=== PATIENT | female | born 1955 | race Caucasian/White ===

== ENCOUNTER → 2017-02-07 | Outpatient (CLI) | payer OTHER ==
[~2017-02-07] MED LIST: ACID1CAP PO; ALBU18HF INH; AMLO5TAB2 PO; BUDE10.22 INH; CALC1CAP8 PO; CETI10CA PO; CHOL5000 PO; FERR325T35 PO; HYDR-3138 PO; LEVO75CA2 PO; LEVO88TA4 PO; LISI40TA PO; LORA10CA PO; MAGN400T36 PO; METO25TA91 PO; MULT-658 PO; TRAZ50TA18 PO; VENL75TA PO; VITA1CAP PO; VITA400C43 PO; folic acid PO; magnesium PO; strontium citrate PO
[2017-02-07 09:51] LABS: HEMATOCRIT 42.8 % (34.6-47.8); HEMOGLOBIN 14.3 g/dL (11.7-16.4); WHITE BLOOD COUNT 9.2 x10^3/uL (3.4-10)
[2017-02-07 09:51] LABS: PATH.CAST-FLAG NOT PRESENT; SPERM-FLAG NOT PRESENT; SRC-FLAG NOT PRESENT; XTAL-FLAG NOT PRESENT; YLC-FLAG NOT PRESENT
[2017-02-07 10:00] LABS: ASPARTATE AMINO TRANSFERASE 9 U/L (15-37); BLOOD UREA NITROGEN 14 mg/dL (7-18)
== END | disposition home or self-care (01) ==
LOC: STAR 08:20
PROVIDERS: ATTEND Orthopaedic Surgery
DX: Z01.818 Encounter for other preprocedural examination (principal); M17.11 Unilateral primary osteoarthritis, right knee; R94.31 Abnormal electrocardiogram [ECG] [EKG]
CPT/HCPCS: 36415; 80053; 81001; 85025; 87081; 87086; 93005

== ENCOUNTER 2017-02-13 08:07 | Inpatient (IN) | payer OTHER ==
[2017-02-07 08:51] VITALS: BP 145/84
[~2017-02-13] VITALS: Ht 157.5 cm; Wt 150.0 kg
[~2017-02-13 08:07] MED LIST changes: +FENTANYL PF 100 MCG/2ML ONE; +FERR-46 PO; -FERR325T35 PO; -HYDR-3138 PO; +HYDR-3237 PO; +HYDROmorphone 1 MG/ML, 1ML ONE; +MIDAZOLAM 1 MG/ML, 2ML ONE; +TRANEXAMIC ACID 100 MG/ML, 10ML ONE
[2017-02-13] MEDS ORDERED: LACTATED RINGERS 1,000 ML IV SCH (09:08)
[2017-02-13] MEDS ORDERED: LIDOCAINE 1%, 2ML SQ PRN (09:30)
[2017-02-13] MEDS ORDERED: PROPOFOL 10 MG/ML, 20ML ONE (10:47)
[2017-02-13] MEDS ORDERED: SUCCINYLCHOLINE 20 MG/ML, 10ML ONE (10:47)
[2017-02-13] MEDS ORDERED: CEFAZOLIN 1,000 MG ONE (10:47)
[2017-02-13] MEDS ORDERED: ROCURONIUM 10 MG/ML ONE (10:47)
[2017-02-13] MEDS ORDERED: TRANEXAMIC ACID 100 MG/ML, 10ML ONE (10:55)
[2017-02-13] MEDS ORDERED: PNEUMOCOCCAL 23 VACCINE IM-VACC ONE (11:00)
[2017-02-13] MEDS ORDERED: FENTANYL PF 100 MCG/2ML ONE ×3 (11:12→13:57)
[2017-02-13] MEDS ORDERED: hydrALAzine 20 MG/ML, 1ML IV PRN (13:00)
[2017-02-13] MEDS ORDERED: SCOPOLAMINE PATCH, 1.5MG PATCH.TD72 TD SCH (13:00)
[2017-02-13] MEDS ORDERED: BISACODYL 10 MG SUPP PR PRN (13:00)
[2017-02-13] MEDS ORDERED: ZOLPIDEM 5MG TABLET PO PRN (13:00)
[2017-02-13] MEDS ORDERED: ONDANSETRON 2MG/ML, 2ML IV PRN (13:00)
[2017-02-13] MEDS ORDERED: METOCLOPRAMIDE 5 MG/ML, 2ML IV PRN (13:00)
[2017-02-13] MEDS ORDERED: PROMETHAZINE 12.5 MG SUPP PR PRN (13:00)
[2017-02-13] MEDS ORDERED: PROMETHAZINE 25 MG/ML, 1ML IM PRN (13:00)
[2017-02-13] MEDS: ACETAMINOPHEN 650 MG/20.3 ML UDC PO SCH ×3 (13:00→23:59)
[2017-02-13] MEDS ORDERED: FENTANYL PF 100 MCG/2ML IV PRN (13:00)
[2017-02-13] MEDS ORDERED: ONDANSETRON 2MG/ML, 2ML IVPush PRN (13:00)
[2017-02-13] MEDS ORDERED: HYDROmorphone 1 MG/ML, 1ML IV PRN (13:00)
[2017-02-13] MEDS ORDERED: HYDROcodone/APAP 10/325 MG TABLET PO PRN (13:00)
[2017-02-13] MEDS ORDERED: MAGNESIUM HYDROXIDE 8%, 30ML UDC PO PRN (13:00)
[2017-02-13] MEDS ORDERED: ALUMINUM/MAG/SIMETHICONE 30 ML UDC PO PRN (13:00)
[2017-02-13] MEDS ORDERED: ONDANSETRON 4 MG TABLET PO PRN (13:00)
[2017-02-13] MEDS ORDERED: OXYcodone 5 MG/5 ML ORAL.SOL UDC PO PRN (13:00)
[2017-02-13] MEDS ORDERED: DIPHENHYDRAMINE 50 MG CAPSULE PO PRN (13:00)
[2017-02-13] MEDS: OXYcodone IR 5MG TABLET PO SCH ×3 (13:00→23:59)
[2017-02-13] MEDS ORDERED: OXYcodone IR 5MG TABLET PO PRN (13:00)
[2017-02-13] MEDS ORDERED: ACETAMINOPHEN 325 MG TABLET PO PRN (13:00)
[2017-02-13] MEDS ORDERED: SENNA/DOCUSATE TABLET PO PRN (13:00)
[2017-02-13] MEDS ORDERED: LABETALOL 5MG/ML, 20ML IV PRN (13:00)
[2017-02-13] MEDS ORDERED: HYDROmorphone 1 MG/ML, 1ML ONE (13:06)
[2017-02-13] MEDS ORDERED: OXYcodone 5 MG/5 ML ORAL.SOL UDC ONE (13:06)
[2017-02-13] MEDS ORDERED: ACETAMINOPHEN 650 MG/20.3 ML UDC ONE (13:06)
[2017-02-13] MEDS: HYDROmorphone 1 MG/ML, 1ML IV PRN ×2 (13:15→13:25)
[2017-02-13] MEDS ORDERED: TRANEXAMIC ACID 2,000 MG in SODIUM CHLORIDE 0.9% 100 ML IVPB ONE (13:15)
[2017-02-13] MEDS: TAMSULOSIN 0.4 MG CAP.ER.24H PO SCH (14:18)
[2017-02-13] MEDS: SODIUM CHLORIDE 0.9% 1,000 ML IV SCH ×2 (14:34→22:41)
[2017-02-13] MEDS ORDERED: KETOROLAC 60 MG/2 ML ONE (14:56)
[2017-02-13] MEDS ORDERED: SODIUM CHLORIDE 0.9% 50 ML ONE (14:56)
[2017-02-13] MEDS ORDERED: EPINEPHRINE 1 MG/ML, 1ML ONE (14:56)
[2017-02-13] MEDS ORDERED: ROPIvacaine/PF 0.2%, 20 ML ONE (14:56)
[2017-02-13] MEDS: ASPIRIN 81 MG TABLET EC PO SCH (17:21)
[2017-02-13] MEDS: CEFAZOLIN PMX 2GM/50ML 50 ML IVPB SCH (18:26)
[2017-02-13 18:50] VITALS: BP 145/78
[2017-02-13] MEDS: DOCUSATE 100 MG CAPSULE PO SCH (20:27)
[2017-02-13] MEDS: PREGABALIN 75 MG CAPSULE PO SCH (20:27)
[2017-02-13] MEDS: TRAZODONE 50MG TABLET PO SCH (20:27)
[2017-02-13] MEDS: METOPROLOL SUCCINATE 25 MG TAB.ER.24H PO SCH (20:27)
[2017-02-13] MEDS: DIAZEPAM 5 MG TABLET PO PRN (21:50)
[2017-02-14 00:02] VITALS: BP 142/64
[2017-02-14] MEDS: CEFAZOLIN PMX 2GM/50ML 50 ML IVPB SCH (02:21)
[2017-02-14] MEDS ORDERED: ACETAMINOPHEN 325 MG TABLET ONE (03:36)
[2017-02-14] MEDS: OXYcodone IR 5MG TABLET PO SCH ×5 (04:05→20:55)
[2017-02-14] MEDS: ACETAMINOPHEN 650 MG/20.3 ML UDC PO SCH (04:06)
[2017-02-14 04:18] VITALS: BP 134/59
[2017-02-14] MEDS: LEVOTHYROXINE 88 MCG TABLET PO SCH (05:47)
[2017-02-14] MEDS: ASPIRIN 81 MG TABLET EC PO SCH ×2 (05:47→16:58)
[2017-02-14 05:52] LABS: HEMATOCRIT 35.6 % (34.6-47.8); HEMOGLOBIN 11.8 g/dL (11.7-16.4)
[2017-02-14] MEDS ORDERED: DEXAMETHASONE 4 MG/ML, 1ML IVPush SCH (06:00)
[2017-02-14 07:52] VITALS: BP 162/70
[2017-02-14] MEDS: SODIUM CHLORIDE 0.9% 1,000 ML IV SCH (08:14)
[2017-02-14] MEDS: ACETAMINOPHEN 325 MG TABLET PO SCH ×4 (08:20→20:55)
[2017-02-14] MEDS: TAMSULOSIN 0.4 MG CAP.ER.24H PO SCH (08:21)
[2017-02-14] MEDS: LISINOPRIL 20 MG TABLET PO SCH (08:22)
[2017-02-14] MEDS: MULTIVITAMINS/MINERALS TABLET PO SCH (08:22)
[2017-02-14] MEDS: AMLODIPINE 5 MG TABLET PO SCH (08:22)
[2017-02-14] MEDS: VENLAFAXINE 75MG TABLET PO SCH (08:22)
[2017-02-14] MEDS: PREGABALIN 75 MG CAPSULE PO SCH ×2 (08:22→20:56)
[2017-02-14] MEDS: DOCUSATE 100 MG CAPSULE PO SCH ×2 (08:23→20:56)
[2017-02-14] MEDS ORDERED: LEVOTHYROXINE SODIUM 75 MCG PO SCH (09:00)
[2017-02-14] MEDS: FLUTICASONE/VILANTEROL 100-25MCG/INH INH SCH (11:46)
[2017-02-14 13:57] VITALS: BP 137/79
[2017-02-14] MEDS: KETOROLAC 30 MG/1 ML IV SCH ×2 (15:01→22:56)
[2017-02-14 19:11] VITALS: BP 149/70
[2017-02-14] MEDS: TRAZODONE 50MG TABLET PO SCH (20:56)
[2017-02-14] MEDS: METOPROLOL SUCCINATE 25 MG TAB.ER.24H PO SCH (20:56)
[2017-02-14] MEDS: DIAZEPAM 5 MG TABLET PO PRN (22:56)
[2017-02-15] MEDS: OXYcodone IR 5MG TABLET PO SCH ×4 (00:30→13:28)
[2017-02-15] MEDS: ACETAMINOPHEN 325 MG TABLET PO SCH ×4 (00:30→13:29)
[2017-02-15] MEDS: ASPIRIN 81 MG TABLET EC PO SCH (04:40)
[2017-02-15] MEDS: LEVOTHYROXINE 88 MCG TABLET PO SCH (04:40)
[2017-02-15] MEDS: KETOROLAC 30 MG/1 ML IV SCH (07:00)
[2017-02-15 08:26] VITALS: BP 135/60
[2017-02-15] MEDS: FLUTICASONE/VILANTEROL 100-25MCG/INH INH SCH (09:26)
[2017-02-15] MEDS: DOCUSATE 100 MG CAPSULE PO SCH (09:28)
[2017-02-15] MEDS: VENLAFAXINE 75MG TABLET PO SCH (09:28)
[2017-02-15] MEDS: AMLODIPINE 5 MG TABLET PO SCH (09:28)
[2017-02-15] MEDS: TAMSULOSIN 0.4 MG CAP.ER.24H PO SCH (09:28)
[2017-02-15] MEDS: PREGABALIN 75 MG CAPSULE PO SCH (09:28)
[2017-02-15] MEDS: MULTIVITAMINS/MINERALS TABLET PO SCH (09:28)
[2017-02-15] MEDS: LISINOPRIL 20 MG TABLET PO SCH (09:29)
[2017-02-15 13:49] VITALS: BP 137/74
[2017-02-15] MEDS ORDERED: OXYC5CAP2 PO (14:41)
[2017-02-15] MEDS ORDERED: ASPI-621 PO (14:42)
== END 2017-02-15 15:06 | disposition home or self-care (01) | DRG 470 ==
LOC: ORIP 08:07 → 4NOR 14:06 → DCLOUNGE 02-15 14:30
PROVIDERS: ADMIT Orthopaedic Surgery; ATTEND Orthopaedic Surgery
PROC: 0SRC0J9 Replacement of Right Knee Joint with Synthetic Substitute, Cemented, Open Approach (ICD-10-PCS; principal; 2017-02-13 11:15)
DX: M17.11 Unilateral primary osteoarthritis, right knee (principal); Z68.44 Body mass index [BMI] 60.0-69.9, adult; I10 Essential (primary) hypertension; J45.909 Unspecified asthma, uncomplicated; E03.9 Hypothyroidism, unspecified; Z88.5 Allergy status to narcotic agent; E66.01 Morbid (severe) obesity due to excess calories; M19.90 Unspecified osteoarthritis, unspecified site; F32.9 Major depressive disorder, single episode, unspecified; Z23 Encounter for immunization
CPT/HCPCS: 36415; 85014; 85018; 90732; C1713; J0171; J0690; J1100; J1170; J1885; J2250; J2704; J2795; J3010; C1776; J0330; J7030